=== PATIENT | female | born 1990 | race Hispanic/Latino ===

== ENCOUNTER → 2024-10-10 | Outpatient (CLI) | payer BC ==
[~2024-10-10] MED LIST: ASPI-1005 PO; PREN-196 PO
--- NOTE | 2024-10-10 09:20 | NUR ---
U/S GD LT BREAST BX NOT DONE U/S PERFORMED BY Franco RESENDIZ RDMS AND Melvin POWERS RDMS. IMAGES REVIEWED BY DR Lillian HAMMONDS. UNABLE TO SEE NODULE VISIBLE FROM PAST U/S. NODULE NOT SEEN UNDER PAST MAMMOGRAM. DR HAMMONDS INFORMED PT AND SPOUSE AT BEDSIDE. DISCHARGED VIA AMBULATORY. DENIES PAIN. A&O.
--- NOTE | 2024-10-10 10:39 | HMCIMG ---
Exam Type: US BREAST LIMITED UNILATERAL Clinical Information: LT BREAST 2.0CM NODULE Comparison: July 05, 2024 ultrasound Findings: The previously identified left breast complex nodule retroareolar 9:00 position has resolved. Upon scanning, the nodule is no longer visualized. Therefore, biopsy could not be performed. IMPRESSION: Biopsy canceled. Previously seen nodule has resolved.
== END | disposition home or self-care (01) ==
LOC: RAH 08:38
PROVIDERS: ATTEND Obstetrics & Gynecology
DX: N63.42 Unspecified lump in left breast, subareolar (principal)
CPT/HCPCS: 76642